=== PATIENT | male | born 1945 | race Caucasian/White ===

== ENCOUNTER → 2018-05-26 | Outpatient (CLI) | payer OTHER ==
[~2018-05-26] MED LIST: AMBIEN 5 MG TABL5 M1; ARANESP SUBQ; ASPIRIN EC81 M1 PO; CARVEDILOL3.125 MG PO; CLOPIDOGREL75 MG PO; FERRO-TIME325 MG PO; HYDROCODON-ACE1 EACH PO; LACTULOSE10 GM/15 M PO; NEPHRO-VITE RX1 TA1; NITROQUICK0.4 MG SL; PANTOPRAZOLE SO40 M1 PO; SIMVASTATIN20 MG PO; SIMVASTATIN40 MG PO; VICODIN 5-5001 EACH PO; ZOCOR 20 MG TAB20 MG PO; [UNRECOGNIZED DRUG - REMARK]; lisinopril
== END ==
LOC: M.MRI 14:08
DX: R19.09 Other intra-abdominal and pelvic swelling, mass and lump (principal); M54.16 Radiculopathy, lumbar region; E78.5 Hyperlipidemia, unspecified; I10 Essential (primary) hypertension; Z88.8 Allergy status to other drugs, medicaments and biological substances; Z79.899 Other long term (current) drug therapy

== ENCOUNTER → 2018-11-02 | Outpatient (CLI) | payer OTHER ==
--- NOTE | 2018-11-02 17:15 | CARDNUC ---
[place] [address] CARDIAC NUCLEAR IMAGING REPORT Name: AKIKO PEREZ Room: [facility]#: [id number] Admission: 11/02/18 Attend Phys: Walker Hernandez, Discharge: Date of : 45 Date of Service: 11/02/18 1714 Report #: [id number] THIS REPORT FOR: //name// APPROVED REPORT Imaging Protocol: Rest Tc-99m/Stress Tc-99m 1 day Study performed: 11/02/2018 07:30:00 Indication: Fatigue, Dyspnea Patient Location: Out-Patient Stress Tech: Maite Dilan Stress Nurse: Becca Anna RN Ht: 6 ft 0 in Wt: 233 lbs BSA: 2.27 m2 BMI: 31.59 Medical History Medical History: mi, cad,hyperlipidemia, hypertension Medications: carvedilol. clopidogrel, fursosemide, ntg prn, kcl, simvastatin, asa Allergies: sulfa Cardiac Risk Factors: age, hyperlipidemia, hypertension Previous Cardiac Procedures: pci, heart surgery for cardiomyxoma Exercise History: Physically active Meds Held (24 hrs): carvedilol Resting Data Rest SPECT myocardial perfusion imaging was performed in supine position 30 minutes following the intravenous injection of 10.4 mCi of Tc-99m Sestamibi. Time of rest injection: 07:50 The images were gated to evaluate regional wall motion and calculate left ventricular ejection fraction. Administration Route: IV Administration Site: Right Hand Pharmacologic Stress Pharmacologic stress test was performed by injecting Regadenoson 0.4 mg IV push over 10-15 seconds immediately followed by the intravenous injection of 33.5 mCi of Tc-99m Sestamibi. Time of stress injection: 09:15 Administration Route: IV Administration Site: Right Hand Heart Rate at time of stress injection: [address] [place] [address] CARDIAC NUCLEAR IMAGING REPORT Name: AKIKO PEREZ [id number] Admission: 11/02/18 Attend Phys: Walker Hernandez, Discharge: Date of : 45 Date of Service: 11/02/18 1714 Report #: [id number] Gated Stress SPECT was performed 45 minutes after stress injection. The images were gated to evaluate regional wall motion and calculate left ventricular ejection fraction. Stress Test Details Stress Test: Exercise stress testing was performed using a Simon protocol. HR Max Heart Rate (APMHR): 147 bpm Resting HR: 87 bpm Target HR (85% APMHR): 124 bpm Max HR Achieved: 132 bpm % of APMHR: 89 Recovery HR: 86 bpm HR response to stress: Normal HR response to stress BP Resting BP: 119/85 mmHg Max BP: 182/117 mmHg Recovery BP: 163/93 mmHg BP response to stress: Normal blood pressure response to stress. ECG Resting ECG: Sinus Rhythm Stress ECG: Sinus Rhythm ST Change: None Arrhythmia: None Recovery ECG: Sinus Rhythm Recovery ST Change: None Recovery Arrhythmia: None Clinical Reason for Termination: Fatigue Stress Symptoms: Dyspnea, Fatigue Exercise duration: 6 min 36 sec Exercise capacity: 7.25 METs Functional Aerobic Impairment 90% Nurse Comments pt tolerated procedure well Stress ECG Conclusion negative ecg portion Study Quality Study: [place] [address] CARDIAC NUCLEAR IMAGING REPORT Name: AKIKO PEREZ Room: [facility]#: [id number] Admission: 11/02/18 Attend Phys: Walker Hernandez, Discharge: Date of : 45 Date of Service: 11/02/18 1714 Report #: [id number] Artifact: No artifact Lung Uptake: Normal Study Data At rest, the left ventricular ejection fraction was 82%.. Post stress, the left ventricular ejection was 86%.. SSS: 9 SRS: 3 SDS: 6 TID = 1.15. Perfusion Review of rest data reveals normal perfusion, without perfusion defects.Imaging obtained following vasodilator stress demonstrate a similar, uniform uptake of tracer without defects. LVEDV is normal.No segental wall motion abnormality seen. Images were reviewed using [employer]. Wall Motion normal all segments Nuclear Conclusion ECG Findings: negative for ischemia Clinical Findings: negative for ischemia Nuclear Findings: negative for ischemia Exercise Capacity: normal Left Ventricular Function: normal Risk Study: low Negative exercise perfusion nuclear stress test for ischemia or infarction <Conclusion> negative ecg portion <ELECTRONICALLY SIGNED> By: Walker Hernandez MD, FAC 11/02/18 1714 13 171 Walker Hernandez MD, FACC /INF
== END ==
LOC: M.NUC 10-25 16:20
DX: I13.0 Hypertensive heart and chronic kidney disease with heart failure and stage 1 through stage 4 chronic kidney disease, or unspecified chronic kidney disease (principal); N18.3 Chronic kidney disease, stage 3 (moderate); I50.31 Acute diastolic (congestive) heart failure; I25.2 Old myocardial infarction; I25.10 Atherosclerotic heart disease of native coronary artery without angina pectoris; E78.5 Hyperlipidemia, unspecified; Z88.2 Allergy status to sulfonamides; Z95.5 Presence of coronary angioplasty implant and graft; Z87.891 Personal history of nicotine dependence; Z79.899 Other long term (current) drug therapy

== ENCOUNTER 2019-05-06 05:07 | Inpatient (IN) | payer OTHER ==
[~2019-05-06] VITALS: Ht 185.4 cm; Wt 104.6 kg
[~2019-05-06 05:07] MED LIST changes: -AMBIEN 5 MG TABL5 M1; +AMBIEN 5 MG TABL5 M1 PO; -NITROQUICK0.4 MG SL; +NITROSTAT0.4 M1 SUBLING
[2019-05-06 05:15] VITALS: BP 141/75
[2019-05-06] MEDS ORDERED: FLOMAX0.4 MG PO (05:23)
[2019-05-06 05:52] LABS: HEMATOCRIT 52.5 % (42.0-52.0); HEMOGLOBIN 17.6 gm/dL (14.0-18.0); MCH 31.6 pg (26.0-34.0); MCHC 33.5 g/dL (28.0-37.0); MCV 94.2 fL (80.0-100.0); MPV 9.5 fl. (7.2-11.1); NUCLEATED RBCS 0 /100WBC; PLATELET COUNT* 162 thou/uL (150-400); RBC 5.58 mil/uL (4.50-6.00); RDW-CV 13.6 % (10.5-14.5); WBC 17.5 thou/uL (4.0-11.0)
[2019-05-06 05:56] LABS: CALCIUM 9.2 mg/dL (8.5-10.1); CREATININE 1.9 mg/dL (0.6-1.3); POTASSIUM 4.4 mmol/L (3.5-5.1)
[2019-05-06 05:58] LABS: BE -3.8 mmol/L (-2 to +3); PCO2 24.6 mmHg (35.0-45.0); pH 7.469 (7.340-7.450)
[2019-05-06 06:01] LABS: ALBUMIN 3.4 g/dL (3.4-5.0); MAGNESIUM 1.4 mg/dL (1.8-2.4); TOTAL BILIRUBIN 1.3 mg/dL (<0.1-1.0); TOTAL PROTEIN 7.5 g/dL (6.4-8.2)
[2019-05-06 06:20] LABS: URINE BILIRUBIN NEGATIVE (Negative); URINE BLOOD 2+ (Negative); URINE CLARITY CLEAR; URINE COLOR YELLOW; URINE GLUCOSE-RANDOM TRACE (Negative); URINE KETONES NEGATIVE (Negative); URINE LEUKOCYTES-REFLEX NEGATIVE (Negative); URINE NITRITE-REFLEX NEGATIVE (Negative); URINE PROTEIN 3+ (Negative); URINE SPECIFIC GRAVITY >= 1.030 (1.005-1.030); URINE UROBILINOGEN 0.2 E.U./dl (0.2-1.0)
[2019-05-06 06:32] LABS: ABSOLUTE LYMPHOCYTES 0.4 thou/uL (0.8-5.3); ABSOLUTE NEUTROPHILS 17.2 thou/uL (1.6-8.1); PLATELET ESTIMATE ADEQUATE
[2019-05-06 06:55] LABS: BACTERIA-REFLEX 1-9 Few /HPF (None Seen); CRYSTALS None Seen /LPF (None Seen); FINE GRANULAR CASTS 4-10 Moderate /LPF (None Seen); MUCUS 0-3 Light strn/LPF (None Seen); SQUAMOUS 0-3 Few /LPF (0-3); URINE RBC 3-10 Few /HPF (0-2); URINE WBC-REFLEX 6-15 Few /HPF (0-5)
[2019-05-06 09:14] VITALS: BP 112/69
[2019-05-06 09:38] VITALS: BP 105/65
[2019-05-06 11:28] VITALS: BP 148/75
[2019-05-06 15:45] VITALS: BP 160/87
[2019-05-06 20:00] VITALS: BP 137/77
--- NOTE | 2019-05-06 20:27 | NUR ---
ASSUSSMED CARE OF PT THIS AM. ASSESSMENT COMPLTED CHARTED. PT MEDICATIONS GIVEN CHARTED. PT HAD QUESTIONS ABOUT PLAN OF CARE. PT TEACHING ABOUT PLAN OF CARE COMPLETED. PT VERBALIZED UNDERSTANDING. PT HAD CO NAUSEA THIS AFTERNOON. MEDICATIONS GIVEN CHARTED. HOURLY ROUNDING COMPLETED.
[2019-05-07] VITALS: BP 100/65
[2019-05-07 04:00] VITALS: BP 109/63
[2019-05-07 04:53] LABS: HEMATOCRIT 44.2 % (42.0-52.0); MCH 30.8 pg (26.0-34.0); MCHC 32.7 g/dL (28.0-37.0); MCV 94.3 fL (80.0-100.0); MPV 8.4 fl. (7.2-11.1); RBC 4.69 mil/uL (4.50-6.00); RDW-CV 14.2 % (10.5-14.5)
[2019-05-07 05:11] LABS: HEMOGLOBIN 14.4 gm/dL (14.0-18.0)
[2019-05-07 05:23] LABS: ALBUMIN 2.4 g/dL (3.4-5.0); CALCIUM 8.1 mg/dL (8.5-10.1); MAGNESIUM 1.8 mg/dL (1.8-2.4); POTASSIUM 4.5 mmol/L (3.5-5.1); TOTAL BILIRUBIN 1.3 mg/dL (<0.1-1.0); TOTAL PROTEIN 5.6 g/dL (6.4-8.2)
--- NOTE | 2019-05-07 05:49 | NUR ---
ASSUMED CARE OF PT AFTER REPORT AT 1930. PT A&OX4. VSS. PHYSICAL ASSESSMENT COMPLETED AND CHARTED. PT ON RA. PT TRACING SR/ST/1ST DEG ON TELE. PT UPSTANDBY. COMPLAINED OF BURNING URINATION. TEMP OF 103. DR KINSEY MADE AWARE WITH NEW ORDERS. TEMP TRENDING DOWN. PT CLAIMED HE'S FEELING BETTER. PT ABLE TO SLEEP WELL ON BED. CALL LIGHT WITHIN REACH.
--- NOTE | 2019-05-07 07:36 | EKG ---
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: AJ : 1945 Requested By: Cindy Bowers Order Number: [id number] MD: Donny Chun Measurements Intervals [place] Rate: 108 P: 269 GA: 188 QRS: -13 QRSD: 102 T: 3 QT: 307 QTc: 412 Interpretive Statements Sinus or ectopic atrial tachycardia Inferior infarct, old Compared to ECG 07/01/2013 19:47:47 Sinus bradycardia no longer present Myocardial infarct finding still present Electronically Signed On 05-07-2019 7:36:42 CDT by Donny Chun [email or web address] <ELECTRONICALLY SIGNED> By: Donny Chun MD, [facility] 05/07/19 0736 [phone] Donny Chun MD, [facility] /EPI
[2019-05-07 08:00] VITALS: BP 110/65
--- NOTE | 2019-05-07 08:39 | NUR ---
ASSUNED THIS PT CARE AT 0730. PT NOTED TO BE RESTIN IN BED A/OX4. PT STATED HE FEELS MUCH BETTER THAN YESTERDAY. TEMP ELEVATED TO 99.3, B/P 110/65, S02 94%, P:72, PT STATES ONLY PAIN HE HAS IN HIS BACK WHICH STATED IS AT 2 ON A 0-10 PAIN SCALE. THIS NURSE APOPLIED THE LIDOCAINE PATCH LOWER MID BACK. WILL CONT HOURLY ROUNDS AND MONITOR FOR CHANGES THIS SHIFT.
[2019-05-07 16:00] VITALS: BP 131/76
--- NOTE | 2019-05-07 19:04 | NUR ---
PT TEMP MONITORED THIS SHIFT, 0800 TEMP 99.3 GIVEN 600MG ACETAMINOPHEN 1400 TEMP AT 99.4, ACETAMINOPHEN DOSE REPEATED, 1830 PT TEMP 100.1, ACETAMINOPHEN. WILL PASS IN REPORT TO CONT MONITOR. PT RESTED IN BED THIS SHIFT WITH IN ROOM BY HIS SIDE, MEDS GIVEN PER DR SLOAN. B/P, PULSES, S02 SABLE THIS SHIFT. PT EDUCATED ON THE USE OF CALL LIGHT AND CALL LIGHT WITHIN REACH.
[2019-05-07 20:00] VITALS: BP 137/77
[2019-05-08 04:25] LABS: HEMOGLOBIN 14.3 gm/dL (14.0-18.0); MCH 31.6 pg (26.0-34.0); MCV 92.9 fL (80.0-100.0); MPV 8.9 fl. (7.2-11.1); RBC 4.53 mil/uL (4.50-6.00); RDW-CV 13.9 % (10.5-14.5)
[2019-05-08 04:43] LABS: CALCIUM 8.4 mg/dL (8.5-10.1); CREATININE 1.8 mg/dL (0.6-1.3); MAGNESIUM 1.6 mg/dL (1.8-2.4); POTASSIUM 4.1 mmol/L (3.5-5.1)
--- NOTE | 2019-05-08 05:52 | NUR ---
ASSUMED CARE OF PT AFTER REPORT AT 1930. PT A&OX4. VSS. PHYSICAL ASSESSMENT COMPLETED AND CHARTED. PT ON RA. PT ON MEDSURG STATUS. PT UPSTANDBY TO RESTROOM. PTS TEMP 103.1. DR HADLEY MADE AWARE WITH NEW ORDER. PTS TEMP RANGING FROM 99.4-103.1. STILL WITH BURNING URINATION. MAGNESIUM 1.6-ELECTROLYTE PROTOCOL IN PLACE. CALL LIGHT WITHIN REACH.
[2019-05-08 07:46] VITALS: BP 145/73
--- NOTE | 2019-05-08 11:00 | NUR ---
ASSUMED CARE AFTER REPORT APPROX 0730. OX4, IRRITABLE. ABLE TO COMMUNICATE NEEDS TO STAFF. MED/SURG STATUS. O2 SATS 95% ON ROOM AIR. PATIENT C/O FEELING MALAISE, FATIGUE AND FRUSTRATION BECAUSE HE WANTS TO FEEL BETTER FASTER. VS REVEAL 103F TEMP AT SECOND ENCOUNTER THIS AM. UP SBA TO BATHROOM OR USING URINAL FOR VOIDS. VOIDS 100-200 MLS AT ONE TIME. RECENT ORDER FOR TO CHECK URINE RESIDUAL AFTER EACH VOID. TELEPHONE CALL FROM DR. PITTMAN WHO DC'D AZITHROMYCIN AND ROCEPHIN. DR. PITTMAN STARTED CEFEPIME BID. UPDATED PATIENT ON PLAN OF CARE. PATIENT TEMP RECHECKED, DOCUMENTED, TRENDING DOWN. HOURLY ROUNDING FOR SAFETY AND PATIENT NEEDS.
--- NOTE | 2019-05-08 14:19 | NUR ---
I HAVE REVIEWED THE STUDENT'S CHARTING.
--- NOTE | 2019-05-08 15:08 | NUR ---
SW met with pt to complete initial assessment, introduce self, and SW role. Pt alert, oriented. Pt lives at home with his (who was not present at time of assessment). Pt was independent prior to admissions, pt says that 3 of his grandchildren are in the home often, youngest is 10, the other 2 are teenagers. Pt does not anticipate any DME or dc needs at this time. SW to continue to follow to assist with safe dc planning.
[2019-05-08 16:00] VITALS: BP 141/70
[2019-05-08 21:00] VITALS: BP 129/78
--- NOTE | 2019-05-09 05:13 | NUR ---
ASSUMED PATIENT CARE AT 1900. PATIENT ALERT AND ORIENTED TIMES FOUR. NO COMPLAINTS OF PAIN OR DISCOMFORT NOTED. AFEBRILE THROUGH THE NIGHT. UP AD HUMZA TO THE RESTROOM. HOURLY ROUNDING AND HOUSING OFFICER COMPLETED CHARTED
[2019-05-09 08:00] VITALS: BP 138/90
[2019-05-09 16:00] VITALS: BP 137/81
--- NOTE | 2019-05-09 17:48 | NUR ---
PATIENT RESTING IN BED. PATIEN TIS UP AD HUMZA IN ROOM. PATIENT DENIES ANY PAIN. PATIENT ANXIOUS ABOUT LAB RESULTS AND TREATMENT, EDUCATION AND REASSURANCE GIVEN. PATIENT HAS GOOD APPETITE. PATIENT HAS BEEN AFEBRILE. PATIENT DENIES ANY NEEDS AT THIS TIME. CALL LIGHT WITHIN REACH.
[2019-05-09 20:11] VITALS: BP 157/86
[2019-05-10 04:03] VITALS: BP 150/93
[2019-05-10 04:06] LABS: HEMATOCRIT 42.1 % (42.0-52.0); HEMOGLOBIN 14.5 gm/dL (14.0-18.0); MCH 31.2 pg (26.0-34.0); MCHC 34.3 g/dL (28.0-37.0); MCV 90.8 fL (80.0-100.0); MPV 8.2 fl. (7.2-11.1); RBC 4.64 mil/uL (4.50-6.00); WBC 6.6 thou/uL (4.0-11.0)
[2019-05-10 04:19] LABS: ALBUMIN 2.5 g/dL (3.4-5.0); CALCIUM 8.5 mg/dL (8.5-10.1); CREATININE 1.8 mg/dL (0.6-1.3); MAGNESIUM 1.8 mg/dL (1.8-2.4); POTASSIUM 3.7 mmol/L (3.5-5.1); TOTAL BILIRUBIN 0.5 mg/dL (<0.1-1.0); TOTAL PROTEIN 6.2 g/dL (6.4-8.2)
--- NOTE | 2019-05-10 05:59 | NUR ---
PATIENT REPORTS CONCERN OVER BLOOD PRESSURE, DISCUSSED WITH HIM HIS ABX THERAPY AND LAST BP WAS 150/53. HE DID NOT SLEEP MUCH DURING SHIFT. NO WORSENING OF SYMPTOMS, NO RESPIRATORY ISSUES. GAVE DOXYCYCLINE AND CEFEPIME PRESCRIBED. REPORTS NO PAIN OR NAUSEA. WILL CONTINUE TO MONITOR
[2019-05-10 08:10] VITALS: BP 145/79
--- NOTE | 2019-05-10 12:11 | CON ---
[address] [address] CONSULTATION Name: AKIKO PEREZ Room: [address] IN ..#: [id number] Admission: 05/06/19 Attend Phys: Mayo Villa MD Discharge: Date of : 45 Report #: [id number] THIS REPORT FOR: //name// CC: Neeraj Villa DATE OF SERVICE: 05/09/2019 INFECTIOUS CONSULTATION ATTENDING PHYSICIAN: Enmanuel Garsia MD REASON FOR EVALUATION: Gram-negative septicemia secondary to complicated urinary tract infection, likely pyelonephritis. HISTORY OF PRESENT ILLNESS: Chart reviewed, patient examined. This is a 73-year-old known history of cardiac disease, renal insufficiency, who presented to the Emergency Room on 05/06/2019 with complaints of back and flank pain in the last few days prior, had been constipated for which he took MiraLax. This led to some diarrheal stools as well. Did have some voiding difficulties. Subsequently, developed what sounds like rigors as well as associated fevers. Initial studies showed a borderline hypoxemia with an ABG: pH 7.469, pCO2 of , and pO2 of 72. Lactic acid was elevated at 3.2. Urinalysis did show moderate pyuria. Chest x-ray was otherwise unremarkable for at least acute processes. As per the evaluation, blood cultures were collected at time of admission 10/07 with growth of gram-negative joshua. Urine culture as well as low numbers of gram-negative rods as well. He was initially empirically treated with azithromycin as well as ceftriaxone, switched to cefepime, doxycycline. He is generally feeling quite a bit better. Denies significant pulmonary complaints. Appetite has actually improved as well. ALLERGIES: LISTED TO BACTRIM. CURRENT MEDICATIONS: Include doxycycline, cefepime, tamsulosin, clopidogrel, aspirin, pantoprazole, phenazopyridine, atorvastatin, carvedilol, enoxaparin, famotidine, p.r.n. analgesics and antiemetics. PAST MEDICAL HISTORY: History of hypertension, hyperlipidemia, atherosclerotic coronary artery disease with previous coronary artery bypass grafting, renal insufficiency. SOCIAL HISTORY: Former smoker. No ethanol, no illicit drug use. FAMILY HISTORY: Noncontributory. REVIEW OF SYSTEMS: Otherwise, unremarkable 10-point [place] [address] CONSULTATION Name: AKIKO PEREZ Room: [address]#: [id number] Admission: 05/06/19 Attend Phys: Mayo Villa MD Discharge: Date of : 45 Report #: [id number] noted the above. PHYSICAL EXAMINATION: GENERAL: He is alert, cooperative, appropriate, mild distress, appears to be generally well nourished. VITAL SIGNS: Temperature 98.1, pulse 76, respirations 18, blood pressure 130/90. SKIN: Warm, dry, no rashes. HEENT: Normocephalic. Extraocular muscles intact. NECK: Supple. LUNGS: Generally clear to auscultation. HEART: Regular rate, do not appreciate a murmur. ABDOMEN: Soft, nontender, nondistended. EXTREMITIES: No cyanosis. Does have distal lower extremity edema. GENITOURINARY: Deferred. LABORATORY DATA: Urine cultures described above 25-50 CFU per mL, gram-negative joshua. Blood cultures 2/2 with gram-negative rods. Prealbumin 11.23. Electrolytes: Sodium 136, potassium 4.1, chloride 103, bicarbonate is 24, anion gap of 9, BUN and creatinine 20 and 1.8, estimated GFR of 37. CBC: White count of 9.0, H and H 14.3/42.0, platelets of 111. ASSESSMENT AND PLAN: Gram-negative septicaemia, I think the evidence only favours genitourinary tract source. Will continue empiric therapy with cefepime at least over the course of next 24 hours, reevaluate, likely transition to oral, which I would hope happen in the next 24-48 hours. We will await culture results. Monitor expectantly. <ELECTRONICALLY SIGNED> By: Henrique Busch MD 05/10/19 1211 [id number] [id number] Busch MD /nt
[2019-05-10] MEDS ORDERED: CIPRO500 MG PO (13:45)
[2019-05-10 13:52] VITALS: BP 145/79
--- NOTE | 2019-05-10 16:10 | NUR ---
PATIENT DISCHARGED TO HOME. DISCHARGE PAPERS REVIEWED AND SIGNED. PRESCRIPTIONS AND INFORMATION SHEETS GIVEN. IV REMOVED. PRESCRIPTION CALLED TO PHARMACY. PATIENT PACKED OWN BELONGINGS. PATIENT DENIES ANY FURTHER NEEDS. PATIENT LEFT AMBULATORY TO EXIT AND LEFT WITH .
== END 2019-05-10 16:10 | disposition home or self-care (01) | DRG 871 ==
LOC: M.ERS 05:07 → M.TBA-ER 06:44 → M.ORTHSURG 06:44 → M.2W 06:44 → M.ORTHSURG 05-08 19:57
PROVIDERS: Internal Medicine; Personal Emergency Response Attendant; ADMIT Family Medicine
DX: A41.50 Gram-negative sepsis, unspecified (principal); J15.9 Unspecified bacterial pneumonia; N17.9 Acute kidney failure, unspecified; N12 Tubulo-interstitial nephritis, not specified as acute or chronic; E83.42 Hypomagnesemia; N40.1 Benign prostatic hyperplasia with lower urinary tract symptoms; I10 Essential (primary) hypertension; E78.5 Hyperlipidemia, unspecified; B96.89 Other specified bacterial agents as the cause of diseases classified elsewhere; I25.10 Atherosclerotic heart disease of native coronary artery without angina pectoris; Z95.1 Presence of aortocoronary bypass graft; Z87.891 Personal history of nicotine dependence; Z88.2 Allergy status to sulfonamides; Z88.8 Allergy status to other drugs, medicaments and biological substances; Z95.5 Presence of coronary angioplasty implant and graft; Z79.82 Long term (current) use of aspirin; Z79.899 Other long term (current) drug therapy

== ENCOUNTER → 2020-02-27 | Outpatient (CLI) | payer OTHER ==
[~2020-02-27] MED LIST changes: +CIPRO500 MG PO; +FLOMAX0.4 MG PO
--- NOTE | 2020-02-28 08:13 | CARDNUC ---
[place] [address] CARDIAC NUCLEAR IMAGING REPORT Name: AKIKO PEREZ Room: [facility]#: [id number] Admission: 02/27/20 Attend Phys: Mayo Dotson, Discharge: Date of : 45 Date of Service: 02/28/20812 Report #: [id number] THIS REPORT FOR: cc: Neeraj Madden,Neeraj Gentile,Mayo Harrington MD [facility] ~ APPROVED REPORT Study performed: 02/27/2020 13:15:00 Indication: follow up Patient Location: Out-Patient Stress Tech: Amber Sam Stress Nurse: Becca Anna RN Ht: 6 ft 0 in Wt: 231 lbs BSA: 2.27 m2 BMI: 31.32 Medical History Medical History: ARF, RESP FAILURE, CARDIAC ARREST, CARDICA MYXOMA Medications: asa-81, carvedilol, plavis, ntg, simvastatin Allergies: SULFA Previous Cardiac Procedures: repair of myxoma Exercise History: Indeterminate Meds Held (24 hrs): b francis not held Resting Data Rest SPECT myocardial perfusion imaging was performed in supine position 30 minutes following the intravenous injection of 10.2 mCi of Tc-99m Sestamibi. Time of rest injection: 13:30 The images were gated to evaluate regional wall motion and calculate left ventricular ejection fraction. Administration Route: IV Administration Site: Right Arm Pharmacologic Stress Pharmacologic stress test was performed by injecting Regadenoson 0.4 mg IV push over 10-15 seconds immediately followed by the intravenous injection of 31.5 mCi of Tc-99m Sestamibi. Time of stress injection: 14:50 Administration Route: IV Administration Site: [place] [address] CARDIAC NUCLEAR IMAGING REPORT Name: AKIKO PEREZ [id number] Admission: 02/27/20 Attend Phys: Mayo Dotson, Discharge: Date of : 45 Date of Service: 02/28/20 0813 Report #: [id number] Heart Rate at time of stress injection: 77 bpm. Gated Stress SPECT was performed 40 minutes after stress injection. The images were gated to evaluate regional wall motion and calculate left ventricular ejection fraction. Stress Test Details Stress Test: Pharmacologic stress testing performed using 0.4 mg of regadenoson per 5 mL given IV over 10 seconds. Reason for pharmacologic stress test: physical limitation. HR Max Heart Rate (APMHR): 146 bpm Resting HR: 60 bpm Target HR (85% APMHR): 124 bpm Max HR Achieved: 77 bpm % of APMHR: 52 Recovery HR: 62 bpm BP Resting BP: 141/85 mmHg Max BP: 125/73 mmHg Recovery BP: 134/79 mmHg ECG Resting ECG: Sinus Rhythm Stress ECG: Sinus Rhythm ST Change: None Arrhythmia: None Recovery ECG: Sinus Rhythm Recovery ST Change: None Recovery Arrhythmia: None Clinical Reason for Termination: Completed protocol Exercise duration: 0 min sec Exercise capacity: 1 METs The patient tolerated Lexiscan infusion without significant cardiac symptoms. Nurse Comments pt too unsteady on feet to walk on treadmill Stress ECG Conclusion The baseline twelve-lead EKG shows sinus rhythm without significant ST segment or T wave abnormality. EKGs obtained during and post Lexiscan infusion show sinus rhythm with no significant ST segment or T wave changes when compared to baseline. There were no stress[place] [address] CARDIAC NUCLEAR IMAGING REPORT Name: AKIKO PEREZ Room: [facility]#: [id number] Admission: 02/27/20 Attend Phys: Mayo Dotson, Discharge: Date of : 45 Date of Service: 02/28/20 0813 Report #: [id number] Study Quality Study: Good Artifact: No artifact Study Data At rest, the left ventricular ejection fraction was 62%.. Post stress, the left ventricular ejection was 69%.. TID = 1.14. Perfusion Perfusion images show a moderate sized moderate intensity basal to mid inferior wall reversible defect consistent with ischemia. No other significant fixed or reversible defects were identified. Wall Motion Global LV systolic function is preserved. There is slight basal inferior wall hypokinesis. Nuclear Conclusion ECG Findings: negative for ischemia Clinical Findings: negative for ischemia Nuclear Findings: positive for ischemia Exercise Capacity: not assessed Left Ventricular Function: Preserved Risk Study: high Perfusion images suggest stress-induced ischemia of the basal to mid inferior wall. Global LV systolic function is preserved with wall motion abnormalities mentioned above. This is a high risk study. <Conclusion> The baseline twelve-lead EKG shows sinus rhythm without significant ST segment or T wave abnormality. EKGs obtained during and post Lexiscan infusion show sinus rhythm with no significant ST segment or T wave changes when compared to baseline. There were no stress-induced arrhythmias. <ELECTRONICALLY SIGNED> By: Mayo Dotson MD, FACC 02/28/20812 2 2 Mayo Dotson MD, FACC /INF
== END ==
LOC: M.NUC 02-15 10:14
PROVIDERS: ATTEND Internal Medicine Cardiovascular Disease
DX: J96.00 Acute respiratory failure, unspecified whether with hypoxia or hypercapnia (principal); D15.1 Benign neoplasm of heart; I46.9 Cardiac arrest, cause unspecified

== ENCOUNTER 2020-03-13 11:45 | Observation (INO) | payer OTHER ==
[2020-03-13] VITALS (15 sets, daily range): BP systolic 137–166; BP diastolic 72–91
[~2020-03-13] VITALS: Ht 182.9 cm; Wt 105.7 kg
[~2020-03-13 11:45] MED LIST changes: +FINASTERIDE5 MG PO; +VITAMIN D31250 MC1 PO
[2020-03-13 12:10] LABS: HEMATOCRIT 50.8 % (42.0-52.0); HEMOGLOBIN 17.4 gm/dL (14.0-18.0); MCH 31.4 pg (26.0-34.0); MCHC 34.3 g/dL (28.0-37.0); MCV 91.6 fL (80.0-100.0); MPV 8.6 fl. (7.2-11.1); RBC 5.55 mil/uL (4.50-6.00); RDW-CV 14.6 % (10.5-14.5); WBC 10.4 thou/uL (4.0-11.0)
[2020-03-13 12:20] LABS: ANION GAP 9 mmol/L (7-16); BUN 29 mg/dL (7-18); CALCIUM 8.8 mg/dL (8.5-10.1); CHLORIDE 101 mmol/L (98-107); CO2 22 mmol/L (21-32); CREATININE 1.9 mg/dL (0.6-1.3); GLUCOSE 153 mg/dL (70-99); POTASSIUM 4.7 mmol/L (3.5-5.1); SODIUM 132 mmol/L (136-145)
[2020-03-13 12:21] LABS: APTT 24.9 Seconds (25.0-31.3); PROTIME 10.3 Seconds (9.20-11.50)
[2020-03-13 12:25] LABS: ALBUMIN 3.7 g/dL (3.4-5.0); ALKALINE PHOSPHATASE 137 U/L (46-116); CHOLESTEROL 134 mg/dL (<200); HDL CHOLESTEROL 47 mg/dL (>40); LDL CHOLESTEROL 58 mg/dL (<100); SERUM ASSESSMENT Clear; SGOT 30 U/L (15-37); SGPT 17 U/L (30-65); TC:HDL 2.9 Ratio (Not establshd); TOTAL BILIRUBIN 0.8 mg/dL (<0.1-1.0); TOTAL PROTEIN 7.9 g/dL (6.4-8.2); TRIGLYCERIDE 149 mg/dL (<150); VLDL 30 mg/dL (<40)
--- NOTE | 2020-03-13 14:51 | CARD ---
[address] [address] CARDIAC CATH REPORT Name: AKIKO PEREZ Room: [address] Harshal Navarro#: [id number] Admission: 03/13/20 Attend Phys: Mayo Dotson MD Discharge: Date of : 45 Report #: [id number] THIS REPORT FOR: //name// cc: Neeraj Madden Steven F. DO ~ APPROVED REPORT Study performed: 03/13/2020 12:25:51 Patient Details Patient Status: Out-Patient Room #: The patient is a 74 year-old male Event Personnel Mayo Dotson Lathe Setup Operator, Isa Herrera RN RN, Aaron Hardy RTR Scrub, Kanchan Campbell RTR Monitor, Sukhwinder Reddy Program Project Manager Procedures Performed Art Access - R femoral artery Left Heart Cath w/or w/o Coronaries BECCA w/Atherectomy Single RCA Hemostasis w/ Angioseal Indication Positive stress test Risk Factors Hypercholesterolemia, Hypertension Previous Procedures/Diagnoses Previous PCI Admission/Lab Medications/Medications given during procedure Oxygen Nasal cannula 2 l per min, 0.9% Sodium Chloride IV 75 ml per hr, Lidocaine Subcut 14 ml, Fentanyl IV 25 mcg, Midazolam (Versed) IV 1 mg, Angiomax IV 16 ml, Angiomax Drip IV 37.06 ml per hr, Nitroglycerin IC 400 mcg, Plavix PO 300 mg Procedure Narrative The patient was brought electively to the Cardiac Catheterization Laboratory and was prepped and draped in a sterile manner. The right femoral was infiltrated with 2% Lidocaine subcutaneous anesthesia. A [place] 6 FR sheath was inserted into the right femoral artery. Coronary angiography was performed using coronary diagnostic catheters. The right coronary system was [place] [address] CARDIAC CATH REPORT Name: CHRISYADIELAwais Kevin Room: [address] Lucien.#: [id number] Admission: 03/13/20 Attend Phys: Mayo Dotson MD Discharge: Date of : 45 Report #: [id number] a Diagnostic 6 Fr JR 4 catheter. The left coronary system was accessed and visualized with a Diagnostic 6 Fr JL 4 catheter. The left ventricle was accessed and visualized with a Diagnostic 6 Fr JR 4 catheter. Left ventricular/Aortic Valve gradient assessed via catheter pullback. Pre-demployment femoral angiogram was performed . Closure device was deployed with a Fr Angioseal STS 6Fr. The patient tolerated the procedure well and there were no complications associated with the procedure. There was no hematoma. Intraoperative Conscious Sedation Sedation start time: 12:53 Case end Time: 13:41 Fentanyl 25 mcg Versed 1 mg Fluoro Time: 14.4 minutes Dose: DAP 624206 cGycm2 2084 mGy Contrast Type and Amount: Visipaque 200 ml Diagnostic Cath Left Main 0% narrowing LAD 30% mid vessel narrowing Circumflex Nondominant vessel with 40% narrowing of the first marginal branch Right Coronary Large dominant vessel with 95% proximal stenosis 75% mid right coronary in-stent restenosis and KELLY II flow to the distal right coronary Left Ventriculography Left Ventriculography was not performed. Hemodynamics The aortic pressure is 168/96 mmHg with a mean of 74 mmHg. The left ventricular pressure is 165/24 mmHg with a mean of mmHg. The left ventricular end diastolic pressure is 30 mmHg. PCI Technique Lesion Anticoagulation was achieved with Angiomax Drip. Patient was preloaded with Angiomax IV 16 ml. Percutaneous coronary intervention was performed on the proximal right coronary artery. The lesion stenosis prior to intervention was 95% with KELLY 2 flow. A 6FR JCR 4 100CM Guide Catheter was used to engage the right ostium. A IG: BMW 190cm Interventional Guidewire was used to cross the lesion. BALLOON DILATION A Balloon catheter Mini Trek RX 2.0 X 12 was inserted and inflated up to 10.00atm for 13seconds. Additional Inflation: 16.00atm [place] [address] CARDIAC CATH REPORT Name: AKIKO PEREZ Room: [address] Harshal M.RRoxi#: [id number] Admission: 03/13/20 Attend Phys: Mayo Dotson MD Discharge: Date of : 45 Report #: [id number] 9seconds. A balloon catheter Euphora SC 2.5 x 15mm was inserted and inflated up to 8 carlton fo r 9 seconds, 12 carlton for 10 seconds, and 14 carlton for 8 seconds. A balloon catheter EA NC Trek RX 2.75 x 15mm was inserted and inflated up to 16 carlton for 9 seconds and 18 carlton for 10 seconds. A cutting balloon Angiosculpt 2.5 x 10mm was inserted and inflated up to 16 carlton for 14 seconds, 16 carlton for 14 seconds, and 14 carlton fo r 13 seconds. STENT DEPLOYMENT A drug-eluting stent [place] RX Stent [id number] was inserted and inflated up to 12.00atm for 8seconds. Additional Inflation: 15.00atm for 9seconds. POST STENT DEPLOYMENT BALLOON DILATION A Balloon catheter NC Euphora 3.0x12 was inserted and inflated up to 15.00atm for 13seconds. Additional Inflation: 16.00atm for 10seconds. Additional Inflation: 17.00atm for 9seconds. Final angiography reveals 10 % stenosis with KELLY 3 flow. Conclusion 1. Significant coronary artery disease characterized by the following: A 95% tubular proximal right coronary stenosis with 75% mid right coronary in-stent restenosis with KELLY II flow to the distal right coronary artery B 30% mid LAD narrowing C 40% narrowing of the first marginal branch of the nondominant circumflex 2. Mild systemic systolic hypertension with significant elevation of left ventricular end diastolic pressure at rest 3. Successful angioplasty atherotomy/atherectomy and deployment of a drug-eluting stent at the sites of 95% tubular proximal and 75% mid right coronary in-stent restenosis with 10% residual narrowing following stent deployment KELLY-3 flow to the distal vessel and no thrombus noted. Recommendations Daily ASA with Plavix for at least one year Cardiac Risk Reduction Program [address] [address] CARDIAC CATH REPORT Name: AKIKO PEREZ Room: .160-1 [facility] Harshal Navarro#: [id number] Admission: 03/13/20 Attend Phys: Mayo Dotson MD Discharge: Date of : 45 Report #: [id number] Medications Administered Clopidogrel Diagnostic Cath Approved by: Mayo Dotson MD Date/Time: 03/13/2020 14:47:51 <ELECTRONICALLY SIGNED> By: Sukhwinder Reddy MD, FACC 03/13/20 1450 1450 [id number] Reddy MD, FACC /INF
[2020-03-13] MEDS ORDERED: MIRALAX119 GM PO (17:03)
--- NOTE | 2020-03-13 18:13 | NUR ---
PT ADMITTED TO ROOM 225 VIA CART FROM CHIEF CLERK AT [facility] 1645 POST CARDIAC CATH PROCEDURE. RT GROIN CATH SITE C/D/I W/ NO HEMATOMA NOTED. PT AOX4 AND ONLY C/O SOME BACK PAIN FROM LYING DOWN FOR TOO LONG. PT ORIENTED TO ROOM AND CALL LIGHT, ADMISSION ASSESSMENT AND HX COMPLETED CHARTED, SEPSIS SCREENING COMPLETED, NEGATIVE. HOME MEDS RECONCILED. PT CURRENTLY HAS NS RUNNING AT 75 ML/HR. 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 MEDS PER NOV, HOURLY ROUNDING OBSERVED, PT UP AD HUMZA, WILL CONTINUE POC.
[2020-03-14 04:10] VITALS: BP 125/80
[2020-03-14 05:24] LABS: ALBUMIN 3.4 g/dL (3.4-5.0); CALCIUM 8.5 mg/dL (8.5-10.1); CREATININE 1.9 mg/dL (0.6-1.3); TOTAL BILIRUBIN 0.8 mg/dL (<0.1-1.0); TOTAL PROTEIN 7.1 g/dL (6.4-8.2)
[2020-03-14 05:27] LABS: POTASSIUM 3.6 mmol/L (3.5-5.1)
--- NOTE | 2020-03-14 05:30 | NUR ---
PATIENT PROGRESSING TOWARDS GOALS: RIGHT GROIN SITE DRESSING C/D/I, MINIMAL BRUISING AROUND SITE, SOFT. PATIENT DENIES PAIN AND DISCOMFORT. ANTICIPATING DISCHARGE HOME TODAY. CALL LIGHT WITHIN REACH
[2020-03-14 05:34] LABS: HEMATOCRIT 45.9 % (42.0-52.0); HEMOGLOBIN 16.1 gm/dL (14.0-18.0); MCH 31.6 pg (26.0-34.0); MCHC 35.1 g/dL (28.0-37.0); MCV 90.1 fL (80.0-100.0); RBC 5.1 mil/uL (4.50-6.00); RDW-CV 14.3 % (10.5-14.5); WBC 11.6 thou/uL (4.0-11.0)
[2020-03-14 08:00] VITALS: BP 138/90
--- NOTE | 2020-03-14 08:41 | D ---
[address] [address] DISCHARGE SUMMARY Name: CHRIS,AKIKO E Room: [address] Harshal Navarro#: [id number] Admission: 03/13/20 Attend Phys: Mayo Dotson MD Discharge: Date of : 45 Report #: [id number] THIS REPORT FOR: //name// cc: Neeraj Madden Steven F. DO THIS REPORT FOR: //name// CC: Mayo Madden MD DISCHARGE DIAGNOSES: 1. Unstable angina. 2. Coronary artery disease. 3. Hypertension. 4. Hyperlipidemia. PROCEDURES DURING THE HOSPITALIZATION: 1. Left heart catheterization. 2. Coronary angiography. 3. Percutaneous coronary intervention to the right coronary artery with drug-eluting stent placement. HOSPITAL COURSE: The patient was brought to the cardiac catheterization lab after a stress test showed evidence of inferior wall ischemia. The patient had been having progressive dyspnea and chest pain suggesting angina. Coronary angiography revealed a high grade 99% proximal right coronary artery stenosis. The patient had a 38 x 2.75 mm drug-eluting stent placed postdilated to 2.85 mm. The patient had excellent response. Previously placed stents in the mid and distal right coronary artery were patent. Previously placed stents in the obtuse marginal branch were patent. No other occlusive disease was noted. The patient was continued on his dual antiplatelet therapy. The patient is being discharged uneventfully. DISCHARGE MEDICATIONS: Will include finasteride 5 mg daily, Flomax 0.4 mg daily, Plavix 75 mg daily, aspirin 81 mg daily, Protonix 40 mg daily, MiraLax daily, carvedilol 6.25 mg b.i.d., Ambien 5 mg at bedtime p.r.n., Nitrostat sublingual p.r.n., simvastatin 40 mg daily. DISPOSITION: The patient will follow up with the nurse practitioner in Cardiology in the next 2-4 weeks. <ELECTRONICALLY SIGNED> By: Mayo Dotson MD, FACC 03/14/20 0841 0740 [id number] manuel Dotson MD, FAC /nt
--- NOTE | 2020-03-14 08:54 | NUR ---
PT.HAD CATH YESTERDAY AND PLANNING ON DISCHARGE TODAY. NO DISCHARGE NEEDS.
--- NOTE | 2020-03-14 10:07 | NUR ---
ASSUMED PT CARE AT 0730, PT RESTING IN BED, AOX4, NO C/O PAIN OR SHORTNESS OF BREATH AND STATES HE IS READY TO GO HOME. PT IS UP AD HUMZA AND RT GROIN CATH SITE IS C/D/I W/ ONLY VERY MINOR BRUISING NOTED ON SIDE OF GAUZE AND TRANSPARENT DRESSING IN PLACE. PT GOAL IS TO WORK ON DC TO HOME AND INCREASE ACTIVITY. AM ASSESSMENT CHARTED, MEDS PER MAR, HOURLY ROUNDING OBSERVED, CALL LIGHT W/IN REACH, WILL CONTINUE POC.
[2020-03-14 10:34] VITALS: BP 148/86
[2020-03-14 11:00] VITALS: BP 148/86
--- NOTE | 2020-03-14 11:44 | NUR ---
DC ORDERS RECEIVED. DC INSTRUCTIONS AND F/U APPTS. GIVEN TO PT. PT COMMUNICATES UNDERSTANDING OF DC TEACHING. IV AND COOKER CASING REMOVED. PT DC'D BY WC W/ NURSING STAFF TO 'S PERSONAL VEHICLE AT [facility]0 W/ ALL PERSONAL BELONGINGS AND DC PAPERWORK.
--- NOTE | 2020-03-14 13:21 | EKG ---
[place] [address] ELECTROCARDIOGRAM REPORT Name: AKIKO PEREZ Room: [address]#: [id number] Admission: 03/13/20 Attend Phys: Mayo Dotson, Discharge: 03/14/20 Date of : 45 Date of Service: 03/13/20 1419 Report #: [id number] THIS REPORT FOR: //name// [facility] Test Date: 2020-03-13 Test Time: 14:19:00 Pat Name: AKIKO PEREZ Department: Room: [facility] Gender: M Perinatology Physician: : 1945 Requested By: Mayo Dotson Order Number: [id number] Sanjay MD: Sukhwinder Reddy Measurements Intervals [place] Rate: 59 P: 36 HI: 278 QRS: -7 QRSD: 110 T: 1 QT: 432 QTc: 428 Interpretive Statements Sinus rhythm Prolonged HI interval Inferior infarct, old Compared to ECG 05/06/2019 05:56:06 First degree AV block now present Myocardial infarct finding still present Electronically Signed On 03-14-2020 13:21:31 CDT by Sukhwinder Reddy [email or web address] <ELECTRONICALLY SIGNED> By: Sukhwinder Reddy MD, [facility] 03/14/20 1321 1419 1419 Sukhwinder Reddy MD, [facility] /EPI
--- NOTE | 2020-03-14 13:26 | EKG ---
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: : 1945 Requested By: Mayo Dotson Order Number: [id number] Reading MD: Sukhwinder Reddy Measurements Intervals [place] Rate: 54 P: -53 ME: 186 QRS: -29 QRSD: 105 T: -11 QT: 432 QTc: 410 Interpretive Statements Sinus rhythm with first-degree AV block Ventricular premature complex Inferior infarct, age indeterminate Compared to ECG 03/13/2020 14:19:00 Ectopic atrial rhythm now present Ventricular premature complex(es) now present Myocardial infarct finding still present Electronically Signed On 03-14-2020 13:26:28 CDT by Sukhwinder Reddy [email or web address] <ELECTRONICALLY SIGNED> By: Sukhwinder Reddy MD, [facility] 03/14/20 1326 2 2 Sukhwinder Reddy MD, [facility] /EPI
== END 2020-03-14 11:40 | disposition home or self-care (01) ==
LOC: M.CL 11:45 → M.TBA-CV 13:16 → M.2W 13:16
PROVIDERS: ADMIT Internal Medicine Cardiovascular Disease; ATTEND Internal Medicine Cardiovascular Disease
DX: I25.110 Atherosclerotic heart disease of native coronary artery with unstable angina pectoris (principal); E78.5 Hyperlipidemia, unspecified; I12.9 Hypertensive chronic kidney disease with stage 1 through stage 4 chronic kidney disease, or unspecified chronic kidney disease; N18.9 Chronic kidney disease, unspecified